=== PATIENT | female | born 1930 | race Hispanic/Latino ===

== ENCOUNTER 2018-12-29 12:20 | Emergency (ER) | payer OTHER ==
[2018-12-29 13:31] LABS: BASOPHILS % (AUTO) 0.7 % (0.0-5.0); EOSINOPHILS % (AUTO) 1.8 % (0.0-8.0); HEMATOCRIT 38.7 % (36-48); LYMPHOCYTES % (AUTO) 13.4 % (21.0-51.0); MEAN CORPUSCULAR HEMOGLOBIN 29.9 pg (27.0-33.0); MEAN CORPUSCULAR HGB CONC 33.7 g/dL (32.0-36.0); MEAN CORPUSCULAR VOLUME 88.6 fL (79-99); MONOCYTES % (AUTO) 6.5 % (3.0-13.0); NEUTROPHILS % (AUTO) 77.6 % (40.0-77.0); PLATELET COUNT (AUTO) 208 K/uL (130-400); RED BLOOD CELL COUNT(AUTO) 4.36 MIL/uL (4.00-5.50); RED CELL DISTRIBUTION WIDTH 13.1 % (11.0-15.5); WHITE BLOOD COUNT (AUTO) 9.6 K/uL (4.8-10.8)
[2018-12-29 13:40] LABS: CREATININE 1.1 mg/dL (0.5-1.5); POTASSIUM 4.3 mmol/L (3.5-5.1)
== END 2018-12-29 15:44 | disposition home or self-care (01) ==
LOC: EDH 12:20
DX: S93.491A Sprain of other ligament of right ankle, initial encounter (principal); I10 Essential (primary) hypertension; Z88.0 Allergy status to penicillin; W18.39XA Other fall on same level, initial encounter; Y93.89 Activity, other specified; Y92.89 Other specified places as the place of occurrence of the external cause; Y99.8 Other external cause status
CPT/HCPCS: 36415; 70450; 73610; 80048; 84484; 85025; 93005

== ENCOUNTER 2020-10-15 00:15 | Inpatient (IN) | payer OTHER ==
[~2020-10-15] VITALS: Ht 152.4 cm; Wt 66.5 kg
[2020-10-15] MEDS ORDERED: ACETAMINOPHEN 650 MG/20.3 ML UDCUP ONE ×2 (00:53→12:51)
[2020-10-15] MEDS ORDERED: ACETAMINOPHEN 650 MG SUPPOSITORY RC ONE (00:58)
[2020-10-15 01:06] LABS: CREATININE 1.3 mg/dL (0.5-1.5); POTASSIUM 3.7 mmol/L (3.5-5.1)
[2020-10-15 01:11] LABS: BASOPHILS % (AUTO) 0.5 % (0.0-5.0); EOSINOPHILS % (AUTO) 1.2 % (0.0-8.0); HEMATOCRIT 38.9 % (36-48); LYMPHOCYTES % (AUTO) 19.7 % (21.0-51.0); MEAN CORPUSCULAR HEMOGLOBIN 28.8 pg (27.0-33.0); MEAN CORPUSCULAR HGB CONC 33.9 g/dL (32.0-36.0); MEAN CORPUSCULAR VOLUME 84.7 fL (79-99); NEUTROPHILS % (AUTO) 72.7 % (40.0-77.0); PLATELET COUNT (AUTO) 318 K/uL (130-400); RED BLOOD CELL COUNT(AUTO) 4.59 MIL/uL (4.00-5.50); RED CELL DISTRIBUTION WIDTH 13.6 % (11.0-15.5); WHITE BLOOD COUNT (AUTO) 14.6 K/uL (4.8-10.8)
[2020-10-15] MEDS ORDERED: SODIUM CHLORIDE 0.9% 1000ML 1,000 ML IV ONE ×3 (01:13→16:40)
[2020-10-15 01:18] LABS: ALBUMIN 3.1 g/dL (3.5-5.0); BILIRUBIN,TOTAL 0.6 mg/dL (0.2-1.0); TOTAL PROTEIN, SERUM 7.9 g/dL (6.0-8.3)
[2020-10-15 01:20] LABS: APPEARANCE,URINE Clear (CLEAR); BILIRUBIN,URINE Negative (NEGATIVE); COLOR,URINE Dark Yellow (YELLOW); GLUCOSE, URINE (UA) Negative (NEGATIVE); KETONES,URINE Trace mg/dL (NEGATIVE); LEUKOCYTE ESTERASE ,URINE Trace (NEGATIVE); NITRATE,URINE Negative (NEGATIVE); OCCULT BLOOD,URINE Negative (NEGATIVE); PROTEIN,URINE Trace mg/dL (NEGATIVE)
[2020-10-15 01:30] LABS: BACTERIA,URINE None Seen /HPF (None Seen); MUCUS,URINE Rare LPF (None Seen); RBC,URINE None Seen /HPF (0-1); SQUAMOUS EPITHELIAL CELL,UR Few /HPF (0-2); WBC,URINE 0-1 /HPF (0-1)
[2020-10-15] MEDS ORDERED: IOHEXOL-350 75 ML VIAL IV ONE (01:44)
[2020-10-15] MEDS ORDERED: ZOSYN 3.375GM+NS 50ML 50 ML IV ONE ×3 (01:55→16:39)
[2020-10-15] MEDS ORDERED: SODIUM CHLORIDE 0.9% 50 ML IV ONE ×3 (01:56→16:40)
[2020-10-15] MEDS ORDERED: KETOROLAC 15MG/ML VIAL (15MG/ML) ONE (02:26)
[2020-10-15] MEDS ORDERED: ONDANSETRON HCL 4 MG/2 ML VIAL IV PRN (02:45)
[2020-10-15] MEDS: SODIUM CHLORIDE 0.9% 1000ML 1,000 ML IV SCH (02:45)
[2020-10-15] MEDS ORDERED: NITROGLYCERIN 0.4 MG SL TAB SL PRN (02:45)
[2020-10-15] MEDS ORDERED: ACETAMINOPHEN 325 MG TAB PO PRN ×2 (02:45)
[2020-10-15 05:58] LABS: CREATINE KINASE, TOTAL 33 U/L (21-232); MYOGLOBIN 118 ng/mL (10-92); TROPONIN I < 0.04 ng/mL (0.00-0.06)
[2020-10-15] MEDS ORDERED: LISINOPRIL 5 MG TABLET ONE (08:25)
[2020-10-15] MEDS ORDERED: ATENOLOL 25 MG TABLET ONE (08:25)
[2020-10-15] MEDS ORDERED: FAMOTIDINE 20MG TAB 20 MG TAB ONE (08:25)
[2020-10-15] MEDS ORDERED: HEPARIN SODIUM 5000UNIT/ML 1ML VIAL ONE ×2 (08:26→22:13)
[2020-10-15] MEDS ORDERED: LEVOTHYROXINE 25 MCG TABLET ONE (08:26)
[2020-10-15] MEDS ORDERED: LISINOPRIL 20 MG TABLET ONE (08:28)
[2020-10-15] MEDS: HEPARIN SODIUM 5000UNIT/ML 1ML VIAL SQ SCH ×2 (09:00→21:00)
[2020-10-15] MEDS: ATENOLOL 50 MG TABLET PO SCH (09:00)
[2020-10-15] MEDS: LISINOPRIL 20 MG TABLET PO SCH (09:00)
[2020-10-15] MEDS: FAMOTIDINE 20MG TAB 20 MG TAB PO SCH (09:00)
[2020-10-15] MEDS: ATORVASTATIN CALCIUM 20 MG TABLET PO SCH (21:00)
[2020-10-15 22:25] VITALS: BP 185/72
[2020-10-15] MEDS ORDERED: MORPHINE 2 MG SYG (2MG/1ML) IVP ONE (23:30)
[2020-10-15 23:45] VITALS: BP 159/72
[2020-10-16] MEDS: ZOSYN 3.375GM+NS 50ML 50 ML IV SCH ×4 (01:03→23:34)
[2020-10-16 04:00] VITALS: BP 178/89
[2020-10-16 04:59] LABS: BASOPHILS % (AUTO) 0.6 % (0.0-5.0); EOSINOPHILS % (AUTO) 1.4 % (0.0-8.0); HEMATOCRIT 34.7 % (36-48); LYMPHOCYTES % (AUTO) 25.3 % (21.0-51.0); MEAN CORPUSCULAR HEMOGLOBIN 28.7 pg (27.0-33.0); MEAN CORPUSCULAR HGB CONC 33.7 g/dL (32.0-36.0); MONOCYTES % (AUTO) 6.6 % (3.0-13.0); NEUTROPHILS % (AUTO) 65.7 % (40.0-77.0); PLATELET COUNT (AUTO) 323 K/uL (130-400); RED BLOOD CELL COUNT(AUTO) 4.08 MIL/uL (4.00-5.50); RED CELL DISTRIBUTION WIDTH 13.5 % (11.0-15.5); WHITE BLOOD COUNT (AUTO) 10.3 K/uL (4.8-10.8)
[2020-10-16 05:15] LABS: ALBUMIN 2.7 g/dL (3.5-5.0); BILIRUBIN,TOTAL 0.7 mg/dL (0.2-1.0); CREATININE 1.1 mg/dL (0.5-1.5); MAGNESIUM 1.7 mg/dL (1.80-2.40); POTASSIUM 3.8 mmol/L (3.5-5.1); TOTAL PROTEIN, SERUM 6.8 g/dL (6.0-8.3)
[2020-10-16] MEDS: LEVOTHYROXINE 50 MCG TABLET PO SCH (06:40)
[2020-10-16 07:00] VITALS: BP 150/87
[2020-10-16] MEDS: SODIUM CHLORIDE 0.9% 1000ML 1,000 ML IV SCH ×2 (07:21→21:39)
[2020-10-16] MEDS: FAMOTIDINE 20MG TAB 20 MG TAB PO SCH (09:00)
[2020-10-16] MEDS: ATENOLOL 50 MG TABLET PO SCH (09:00)
[2020-10-16] MEDS: LISINOPRIL 20 MG TABLET PO SCH (09:00)
[2020-10-16 11:00] VITALS: BP 164/63
[2020-10-16] MEDS: HEPARIN SODIUM 5000UNIT/ML 1ML VIAL SQ SCH ×3 (11:54→19:49)
[2020-10-16 16:00] VITALS: BP 123/58
[2020-10-16] MEDS: ATORVASTATIN CALCIUM 20 MG TABLET PO SCH (19:48)
[2020-10-16 20:00] VITALS: BP 147/64
[2020-10-16] MEDS ORDERED: HYDRALAZINE HCL 20 MG/ML VIAL IV STA (23:28)
[2020-10-16] MEDS ORDERED: HYDRALAZINE HCL 20 MG/ML VIAL ONE (23:32)
[2020-10-16 23:45] VITALS: BP 192/73
[2020-10-17 00:22] VITALS: BP 158/80
[2020-10-17 04:00] VITALS: BP 165/58
[2020-10-17 05:32] LABS: HEMATOCRIT 36.3 % (36-48); MEAN CORPUSCULAR HEMOGLOBIN 29.1 pg (27.0-33.0); MEAN CORPUSCULAR HGB CONC 34.2 g/dL (32.0-36.0); MEAN CORPUSCULAR VOLUME 85.2 fL (79-99); PLATELET COUNT (AUTO) 341 K/uL (130-400); RED BLOOD CELL COUNT(AUTO) 4.26 MIL/uL (4.00-5.50); RED CELL DISTRIBUTION WIDTH 13.6 % (11.0-15.5); WHITE BLOOD COUNT (AUTO) 11.3 K/uL (4.8-10.8)
[2020-10-17 05:38] LABS: CREATININE 0.8 mg/dL (0.5-1.5); POTASSIUM 3.3 mmol/L (3.5-5.1)
[2020-10-17] MEDS: LEVOTHYROXINE 50 MCG TABLET PO SCH (05:45)
[2020-10-17 05:54] LABS: BASOPHILS % (MANUAL) 1 % (0-2); LYMPHOCYTES % (MANUAL) 19 % (22-44); MONOCYTES % (MANUAL) 4 % (2-9); SEGMENTED NEUTROPHILS % 76 % (40-70)
[2020-10-17 05:55] LABS: MAN.DIFF COMMENT-IMPRESSION MANUAL DIFFERENTIAL
[2020-10-17 08:00] VITALS: BP 177/66
[2020-10-17] MEDS: ZOSYN 3.375GM+NS 50ML 50 ML IV SCH ×3 (08:21→23:57)
[2020-10-17] MEDS: FAMOTIDINE 20MG TAB 20 MG TAB PO SCH (08:22)
[2020-10-17] MEDS: ATENOLOL 50 MG TABLET PO SCH (08:22)
[2020-10-17] MEDS: LISINOPRIL 20 MG TABLET PO SCH (08:22)
[2020-10-17] MEDS: HEPARIN SODIUM 5000UNIT/ML 1ML VIAL SQ SCH ×3 (08:26→19:36)
[2020-10-17] MEDS: SODIUM CHLORIDE 0.9% 1000ML 1,000 ML IV SCH (08:47)
[2020-10-17 12:00] VITALS: BP 128/53
[2020-10-17] MEDS ORDERED: SODIUM CHLORIDE 0.9% 250 ML IV ONE (15:38)
[2020-10-17] MEDS: DOXYCYCLINE 100MG+NS 250ML 250 ML IV SCH (15:45)
[2020-10-17 16:00] VITALS: BP 130/62
[2020-10-17] MEDS: ATORVASTATIN CALCIUM 20 MG TABLET PO SCH (19:35)
[2020-10-17 20:00] VITALS: BP 154/65
[2020-10-18] VITALS (26 sets, daily range): BP systolic 119–198; BP diastolic 45–84
[2020-10-18] MEDS: DOXYCYCLINE 100MG+NS 250ML 250 ML IV SCH ×2 (02:11→14:01)
[2020-10-18 04:15] LABS: BASOPHILS % (AUTO) 0.9 % (0.0-5.0); HEMATOCRIT 33.2 % (36-48); LYMPHOCYTES % (AUTO) 23.4 % (21.0-51.0); MEAN CORPUSCULAR HEMOGLOBIN 29.5 pg (27.0-33.0); MEAN CORPUSCULAR HGB CONC 34.3 g/dL (32.0-36.0); MONOCYTES % (AUTO) 7.4 % (3.0-13.0); PLATELET COUNT (AUTO) 329 K/uL (130-400); RED BLOOD CELL COUNT(AUTO) 3.86 MIL/uL (4.00-5.50); RED CELL DISTRIBUTION WIDTH 14.1 % (11.0-15.5)
[2020-10-18 04:48] LABS: ALBUMIN 2.5 g/dL (3.5-5.0); BILIRUBIN,TOTAL 0.8 mg/dL (0.2-1.0); CREATININE 0.8 mg/dL (0.5-1.5); POTASSIUM 3.3 mmol/L (3.5-5.1); TOTAL PROTEIN, SERUM 6.5 g/dL (6.0-8.3)
[2020-10-18] MEDS: LEVOTHYROXINE 50 MCG TABLET PO SCH (05:06)
[2020-10-18] MEDS: SODIUM CHLORIDE 0.9% 1000ML 1,000 ML IV SCH ×2 (06:15→14:01)
[2020-10-18] MEDS ORDERED: DEXTROSE 50%-WATER 50 ML DISP.SYRIN IV ONE (07:55)
[2020-10-18] MEDS ORDERED: DEXTROSE 50%-WATER 50 ML DISP.SYRIN IV PRN (08:00)
[2020-10-18] MEDS ORDERED: GLUCAGON 1MG KIT 1 MG ML IM PRN (08:00)
[2020-10-18] MEDS ORDERED: IOHEXOL-350 50ML VIAL IV ONE (08:43)
[2020-10-18] MEDS: ATENOLOL 50 MG TABLET PO SCH (09:00)
[2020-10-18] MEDS ORDERED: INDOMETHACIN 50 MG SUPP.RECT RC SCH (09:00)
[2020-10-18] MEDS: HEPARIN SODIUM 5000UNIT/ML 1ML VIAL SQ SCH (09:00)
[2020-10-18] MEDS: ZOSYN 3.375GM+NS 50ML 50 ML IV SCH ×2 (09:00→17:16)
[2020-10-18] MEDS: LISINOPRIL 20 MG TABLET PO SCH (09:00)
[2020-10-18] MEDS: FAMOTIDINE 20MG TAB 20 MG TAB PO SCH (09:00)
[2020-10-18] MEDS ORDERED: PROPOFOL 10 MG/ML 20ML VIAL IV ONE (09:36)
[2020-10-18] MEDS ORDERED: SUCCINYLCHOLINE 200MG/10ML SYR ONE (09:36)
[2020-10-18] MEDS ORDERED: EPHEDRINE SULFATE 50 MG/ML AMPULE ONE (09:55)
[2020-10-18] MEDS ORDERED: HYDRALAZINE HCL 20 MG/ML VIAL ONE (10:38)
[2020-10-18] MEDS ORDERED: PHARMACY COMMUNICATION MISC SCH (12:30)
[2020-10-18] MEDS ORDERED: SODIUM CHLORIDE 0.9% 250 ML IV ONE (13:31)
[2020-10-18] MEDS: ATORVASTATIN CALCIUM 20 MG TABLET PO SCH (20:40)
[2020-10-19] VITALS (23 sets, daily range): BP systolic 119–188; BP diastolic 46–80
[2020-10-19] MEDS ORDERED: SODIUM CHLORIDE 0.9% 50 ML IV ONE (02:04)
[2020-10-19] MEDS: ZOSYN 3.375GM+NS 50ML 50 ML IV SCH ×3 (02:14→17:56)
[2020-10-19] MEDS ORDERED: SODIUM CHLORIDE 0.9% 250 ML IV ONE (04:12)
[2020-10-19] MEDS: DOXYCYCLINE 100MG+NS 250ML 250 ML IV SCH ×2 (04:17→17:56)
[2020-10-19 04:55] LABS: ALBUMIN 2.5 g/dL (3.5-5.0); BILIRUBIN,TOTAL 0.7 mg/dL (0.2-1.0); CREATININE 0.8 mg/dL (0.5-1.5); CRP QUANTITATIVE 12.4 mg/L (0.00-9.0); POTASSIUM 3.4 mmol/L (3.5-5.1); TOTAL PROTEIN, SERUM 6.5 g/dL (6.0-8.3)
[2020-10-19] MEDS: LEVOTHYROXINE 50 MCG TABLET PO SCH (06:15)
[2020-10-19] MEDS: LISINOPRIL 20 MG TABLET PO SCH (11:20)
[2020-10-19] MEDS: FAMOTIDINE 20MG TAB 20 MG TAB PO SCH (11:21)
[2020-10-19] MEDS: ATENOLOL 50 MG TABLET PO SCH (11:22)
[2020-10-19] MEDS ORDERED: LACTATED RINGERS 1000ML 1,000 ML IV ONE (14:24)
[2020-10-19] MEDS ORDERED: BUPIVACAINE/PF 0.5% 30ML VIAL ONE (14:36)
[2020-10-19] MEDS ORDERED: PROPOFOL 10 MG/ML 20ML VIAL IV ONE (14:38)
[2020-10-19] MEDS ORDERED: SUCCINYLCHOLINE CHLORIDE 20 MG/ML 10 ML VIAL ONE (14:38)
[2020-10-19] MEDS ORDERED: LIDOCAINE PF 100MG/5ML (2%) SYRINGE 5ML ONE (14:38)
[2020-10-19] MEDS ORDERED: ROCURONIUM 10MG/1ML SYR 10 MG/ML ML ONE (14:39)
[2020-10-19] MEDS ORDERED: FENTANYL CITRATE PF 50 MCG/1 ML 2ML VIAL ONE (14:39)
[2020-10-19] MEDS ORDERED: GLYCOPYRROLATE 1 MG/5 ML SYRINGE ONE (15:09)
[2020-10-19] MEDS ORDERED: EPHEDRINE SULFATE 50 MG/ML AMPULE ONE (15:14)
[2020-10-19] MEDS ORDERED: NEOSTIGMINE 5MG/5ML SYR IV ONE (15:23)
[2020-10-19] MEDS ORDERED: LABETALOL HCL 5 MG/ML 20ML VIAL IV ONE (16:02)
[2020-10-19] MEDS ORDERED: HYDRALAZINE HCL 20 MG/ML VIAL ONE (16:03)
[2020-10-19] MEDS ORDERED: MEPERIDINE-PF 25 MG/ML SYG ONE (16:08)
[2020-10-19 17:53] LABS: BASOPHILS % (AUTO) 0.5 % (0.0-5.0); EOSINOPHILS % (AUTO) 1.1 % (0.0-8.0); HEMATOCRIT 33.7 % (36-48); LYMPHOCYTES % (AUTO) 10.7 % (21.0-51.0); MEAN CORPUSCULAR HEMOGLOBIN 29.8 pg (27.0-33.0); MEAN CORPUSCULAR HGB CONC 34.1 g/dL (32.0-36.0); MEAN CORPUSCULAR VOLUME 87.3 fL (79-99); MONOCYTES % (AUTO) 5.1 % (3.0-13.0); NEUTROPHILS % (AUTO) 82.3 % (40.0-77.0); PLATELET COUNT (AUTO) 312 K/uL (130-400); RED BLOOD CELL COUNT(AUTO) 3.86 MIL/uL (4.00-5.50); RED CELL DISTRIBUTION WIDTH 14.7 % (11.0-15.5); WHITE BLOOD COUNT (AUTO) 11.7 K/uL (4.8-10.8)
[2020-10-19] MEDS ORDERED: ACETAMINOPHEN-CODEINE 300/30MG TAB PO PRN (19:45)
[2020-10-19] MEDS: ATORVASTATIN CALCIUM 20 MG TABLET PO SCH (21:50)
[2020-10-19] MEDS: MORPHINE 2 MG SYG (2MG/1ML) IVP PRN (21:57)
[2020-10-20] VITALS: BP 134/60
[2020-10-20] MEDS ORDERED: SODIUM CHLORIDE 0.9% 50 ML IV ONE (01:38)
[2020-10-20] MEDS: ZOSYN 3.375GM+NS 50ML 50 ML IV SCH ×2 (01:40→12:01)
[2020-10-20] MEDS ORDERED: SODIUM CHLORIDE 0.9% 250 ML IV ONE ×2 (03:32→20:22)
[2020-10-20] MEDS: DOXYCYCLINE 100MG+NS 250ML 250 ML IV SCH ×2 (03:49→20:33)
[2020-10-20 04:00] VITALS: BP 169/76
[2020-10-20 04:08] LABS: BASOPHILS % (AUTO) 0.7 % (0.0-5.0); EOSINOPHILS % (AUTO) 1.4 % (0.0-8.0); HEMATOCRIT 33.5 % (36-48); LYMPHOCYTES % (AUTO) 15.4 % (21.0-51.0); MEAN CORPUSCULAR HEMOGLOBIN 29.2 pg (27.0-33.0); MEAN CORPUSCULAR HGB CONC 33.7 g/dL (32.0-36.0); MEAN CORPUSCULAR VOLUME 86.6 fL (79-99); MONOCYTES % (AUTO) 6.3 % (3.0-13.0); NEUTROPHILS % (AUTO) 75.9 % (40.0-77.0); PLATELET COUNT (AUTO) 321 K/uL (130-400); RED BLOOD CELL COUNT(AUTO) 3.87 MIL/uL (4.00-5.50); RED CELL DISTRIBUTION WIDTH 14.5 % (11.0-15.5); WHITE BLOOD COUNT (AUTO) 11.7 K/uL (4.8-10.8)
[2020-10-20 04:22] LABS: ALBUMIN 2.4 g/dL (3.5-5.0); BILIRUBIN,TOTAL 0.8 mg/dL (0.2-1.0); CREATININE 0.7 mg/dL (0.5-1.5); CRP QUANTITATIVE 24.1 mg/L (0.00-9.0); POTASSIUM 3.3 mmol/L (3.5-5.1); TOTAL PROTEIN, SERUM 6.2 g/dL (6.0-8.3)
[2020-10-20] MEDS: LEVOTHYROXINE 50 MCG TABLET PO SCH (06:41)
[2020-10-20 08:00] VITALS: BP 167/69
[2020-10-20] MEDS ORDERED: LISINOPRIL 20 MG TABLET PO SCH (10:45)
[2020-10-20 11:58] VITALS: BP 162/72
[2020-10-20] MEDS: FAMOTIDINE 20MG TAB 20 MG TAB PO SCH (12:02)
[2020-10-20] MEDS: ATENOLOL 50 MG TABLET PO SCH (12:03)
[2020-10-20 16:00] VITALS: BP 163/62
[2020-10-20 19:00] VITALS: BP 182/74
[2020-10-20] MEDS: ATORVASTATIN CALCIUM 20 MG TABLET PO SCH (20:32)
[2020-10-20] MEDS: SODIUM CHLORIDE 0.9% 1000ML 1,000 ML IV SCH (20:49)
[2020-10-21] VITALS (7 sets, daily range): BP systolic 114–197; BP diastolic 71–90
[2020-10-21] MEDS: ZOSYN 3.375GM+NS 50ML 50 ML IV SCH ×3 (00:24→16:20)
[2020-10-21 04:16] LABS: BASOPHILS % (AUTO) 0.9 % (0.0-5.0); EOSINOPHILS % (AUTO) 2.6 % (0.0-8.0); HEMATOCRIT 32.9 % (36-48); LYMPHOCYTES % (AUTO) 24.2 % (21.0-51.0); MEAN CORPUSCULAR HEMOGLOBIN 29.2 pg (27.0-33.0); MEAN CORPUSCULAR VOLUME 85.7 fL (79-99); MONOCYTES % (AUTO) 7.5 % (3.0-13.0); NEUTROPHILS % (AUTO) 64.4 % (40.0-77.0); PLATELET COUNT (AUTO) 322 K/uL (130-400); RED BLOOD CELL COUNT(AUTO) 3.84 MIL/uL (4.00-5.50); RED CELL DISTRIBUTION WIDTH 14.7 % (11.0-15.5); WHITE BLOOD COUNT (AUTO) 9.6 K/uL (4.8-10.8)
[2020-10-21 04:33] LABS: ALBUMIN 2.4 g/dL (3.5-5.0); BILIRUBIN,TOTAL 0.9 mg/dL (0.2-1.0); CREATININE 0.7 mg/dL (0.5-1.5); TOTAL PROTEIN, SERUM 6.3 g/dL (6.0-8.3)
[2020-10-21 04:40] LABS: POTASSIUM 2.8 mmol/L (3.5-5.1)
[2020-10-21] MEDS ORDERED: KCL 20 MEQ ERTAB PO PRN (05:15)
[2020-10-21] MEDS: POTASSIUM CHLORIDE 10% ELIXIR 20 MEQ/15 ML UDCUP PO PRN ×3 (05:43→13:52)
[2020-10-21] MEDS: LEVOTHYROXINE 50 MCG TABLET PO SCH (05:43)
[2020-10-21] MEDS: POTASSIUM CHLORIDE 10MEQ/100ML 100 ML IV PRN (05:44)
[2020-10-21] MEDS: LABETALOL 20 MG/4 ML DISP.SYRIN IV PRN ×2 (05:48→17:46)
[2020-10-21] MEDS: DOXYCYCLINE 100MG+NS 250ML 250 ML IV SCH ×2 (08:21→19:06)
[2020-10-21] MEDS: ATENOLOL 50 MG TABLET PO SCH (09:27)
[2020-10-21] MEDS: LISINOPRIL 20 MG TABLET PO SCH (09:27)
[2020-10-21] MEDS: FAMOTIDINE 20MG TAB 20 MG TAB PO SCH (09:27)
[2020-10-21] MEDS: SODIUM CHLORIDE 0.9% 1000ML 1,000 ML IV SCH (14:46)
[2020-10-21] MEDS ORDERED: SIMETHICONE 80 MG TAB.CHEW PO SCH (16:15)
[2020-10-21] MEDS ORDERED: KCL 20 MEQ ERTAB PO SCH (16:15)
[2020-10-21 18:55] LABS: CREATININE 0.6 mg/dL (0.5-1.5); POTASSIUM 3.2 mmol/L (3.5-5.1)
[2020-10-21] MEDS ORDERED: DOXYCYCLINE 100MG+NS 250ML 250 ML IV SCH (20:00)
[2020-10-21] MEDS: ATORVASTATIN CALCIUM 20 MG TABLET PO SCH (20:50)
[2020-10-21] MEDS: MORPHINE 2 MG SYG (2MG/1ML) IVP PRN (20:59)
[2020-10-22] VITALS (8 sets, daily range): BP systolic 161–196; BP diastolic 58–84
[2020-10-22] MEDS: LABETALOL 20 MG/4 ML DISP.SYRIN IV PRN (00:24)
[2020-10-22] MEDS: ZOSYN 3.375GM+NS 50ML 50 ML IV SCH ×3 (00:24→16:46)
[2020-10-22] MEDS: LIDOCAINE HCL-MPF 1% 2ML VIAL IJ PRN ×2 (04:13→11:46)
[2020-10-22] MEDS: POTASSIUM CHLORIDE 10MEQ/100ML 100 ML IV PRN ×2 (04:13→11:46)
[2020-10-22 05:35] LABS: BASOPHILS % (AUTO) 1.3 % (0.0-5.0); EOSINOPHILS % (AUTO) 2.3 % (0.0-8.0); HEMATOCRIT 32.2 % (36-48); LYMPHOCYTES % (AUTO) 22.5 % (21.0-51.0); MEAN CORPUSCULAR HEMOGLOBIN 28.7 pg (27.0-33.0); MEAN CORPUSCULAR HGB CONC 33.5 g/dL (32.0-36.0); MEAN CORPUSCULAR VOLUME 85.6 fL (79-99); MONOCYTES % (AUTO) 6.9 % (3.0-13.0); NEUTROPHILS % (AUTO) 66.6 % (40.0-77.0); PLATELET COUNT (AUTO) 320 K/uL (130-400); RED BLOOD CELL COUNT(AUTO) 3.76 MIL/uL (4.00-5.50); RED CELL DISTRIBUTION WIDTH 14.9 % (11.0-15.5); WHITE BLOOD COUNT (AUTO) 8.3 K/uL (4.8-10.8)
[2020-10-22 05:52] LABS: ALBUMIN 2.4 g/dL (3.5-5.0); BILIRUBIN,TOTAL 0.8 mg/dL (0.2-1.0); CREATININE 0.7 mg/dL (0.5-1.5); POTASSIUM 3.1 mmol/L (3.5-5.1); TOTAL PROTEIN, SERUM 6.1 g/dL (6.0-8.3)
[2020-10-22] MEDS: LEVOTHYROXINE 50 MCG TABLET PO SCH (06:04)
[2020-10-22] MEDS: FAMOTIDINE 20MG TAB 20 MG TAB PO SCH (08:44)
[2020-10-22] MEDS: LISINOPRIL 20 MG TABLET PO SCH (08:45)
[2020-10-22] MEDS: ATENOLOL 50 MG TABLET PO SCH (08:45)
[2020-10-22] MEDS: DOXYCYCLINE 100MG+NS 250ML 250 ML IV SCH ×2 (08:46→20:26)
[2020-10-22] MEDS: SODIUM CHLORIDE 0.9% 1000ML 1,000 ML IV SCH (10:46)
[2020-10-22] MEDS: LABETALOL HCL 5 MG/ML 20ML VIAL IV PRN ×3 (12:31→23:47)
[2020-10-22] MEDS: ATORVASTATIN CALCIUM 20 MG TABLET PO SCH (20:26)
[2020-10-23] MEDS: ZOSYN 3.375GM+NS 50ML 50 ML IV SCH ×2 (01:00→10:05)
[2020-10-23 01:09] VITALS: BP 161/73
[2020-10-23 04:00] VITALS: BP 157/64
[2020-10-23 05:16] LABS: EOSINOPHILS % (AUTO) 1.8 % (0.0-8.0); HEMATOCRIT 32.2 % (36-48); LYMPHOCYTES % (AUTO) 16.7 % (21.0-51.0); MEAN CORPUSCULAR HGB CONC 33.5 g/dL (32.0-36.0); MEAN CORPUSCULAR VOLUME 86.3 fL (79-99); MONOCYTES % (AUTO) 5.9 % (3.0-13.0); NEUTROPHILS % (AUTO) 74.1 % (40.0-77.0); PLATELET COUNT (AUTO) 307 K/uL (130-400); RED BLOOD CELL COUNT(AUTO) 3.73 MIL/uL (4.00-5.50); RED CELL DISTRIBUTION WIDTH 15.2 % (11.0-15.5); WHITE BLOOD COUNT (AUTO) 10.6 K/uL (4.8-10.8)
[2020-10-23 05:46] LABS: ALBUMIN 2.4 g/dL (3.5-5.0); BILIRUBIN,TOTAL 0.8 mg/dL (0.2-1.0); CREATININE 0.7 mg/dL (0.5-1.5); TOTAL PROTEIN, SERUM 6.1 g/dL (6.0-8.3)
[2020-10-23] MEDS: LEVOTHYROXINE 50 MCG TABLET PO SCH (06:04)
[2020-10-23] MEDS: SODIUM CHLORIDE 0.9% 1000ML 1,000 ML IV SCH (06:05)
[2020-10-23] MEDS: LIDOCAINE HCL-MPF 1% 2ML VIAL IJ PRN ×2 (06:18→11:54)
[2020-10-23] MEDS: POTASSIUM CHLORIDE 10MEQ/100ML 100 ML IV PRN ×2 (06:18→11:54)
[2020-10-23 08:00] VITALS: BP 183/90
[2020-10-23] MEDS: FAMOTIDINE 20MG TAB 20 MG TAB PO SCH (10:04)
[2020-10-23] MEDS: ATENOLOL 50 MG TABLET PO SCH (10:04)
[2020-10-23] MEDS: DOXYCYCLINE 100MG+NS 250ML 250 ML IV SCH (10:05)
[2020-10-23] MEDS: LISINOPRIL 20 MG TABLET PO SCH (10:05)
[2020-10-23 12:00] VITALS: BP 179/78
[2020-10-23 13:00] VITALS: BP 156/98
[2020-10-23] MEDS ORDERED: ACET-3194 PO (13:22)
[2020-10-23] MEDS ORDERED: ATOR20TA65 PO (13:22)
[2020-10-23] MEDS ORDERED: LISI20TA24 PO (13:22)
[2020-10-23] MEDS ORDERED: ATEN50TA PO (13:22)
[2020-10-23] MEDS ORDERED: AMOX-429 PO (13:22)
[2020-10-23] MEDS ORDERED: KCL 20 MEQ ERTAB PO SCH (16:35)
== END 2020-10-23 16:23 | disposition home or self-care (01) | DRG 853 ==
LOC: EDH 00:15 → EDBD 00:16 → EDHIP 00:16 → 4BH 20:49
PROVIDERS: ADMIT Internal Medicine; ATTEND Internal Medicine
PROC: 0F798ZZ Dilation of Common Bile Duct, Via Natural or Artificial Opening Endoscopic (ICD-10-PCS; 2020-10-18)
PROC: 0FB98ZZ Excision of Common Bile Duct, Via Natural or Artificial Opening Endoscopic (ICD-10-PCS; 2020-10-18)
PROC: 0FT44ZZ Resection of Gallbladder, Percutaneous Endoscopic Approach (ICD-10-PCS; principal; 2020-10-19 14:54)
DX: A41.9 Sepsis, unspecified organism (principal); J18.9 Pneumonia, unspecified organism; G93.41 Metabolic encephalopathy; N39.0 Urinary tract infection, site not specified; K80.62 Calculus of gallbladder and bile duct with acute cholecystitis without obstruction; E86.0 Dehydration; E66.9 Obesity, unspecified; K57.90 Diverticulosis of intestine, part unspecified, without perforation or abscess without bleeding; I12.9 Hypertensive chronic kidney disease with stage 1 through stage 4 chronic kidney disease, or unspecified chronic kidney disease; N18.30 Chronic kidney disease, stage 3 unspecified; E87.6 Hypokalemia; K83.8 Other specified diseases of biliary tract; E78.5 Hyperlipidemia, unspecified; Z68.31 Body mass index [BMI] 31.0-31.9, adult; Z83.79 Family history of other diseases of the digestive system
CPT/HCPCS: 36415; 43262; 43264; 70450; 71045; 72125; 74018; 74177; 74181; 74330; 76705; 80048; 80053; 81001; 82140; 82550; 82948; 83605; 83735; 83874; 83880; 84132; 84145; 84484; 85025; 86140; 87040; 87088; 87426; 87635; 87804; 92610; 93005; 93306; 93356; 93970; 97039; A4606; C1769; C1773; C9803; G0378; J0330; J0360; J1644; J1885; J2001; J2175; J2405; J2543; J2704; J2710; J3010; J3490; J7030; J7050; J7070; J7120; Q9967

== ENCOUNTER 2021-01-09 17:44 | Inpatient (IN) | payer MEDICAID, OTHER ==
[~2021-01-09] VITALS: Ht 152.4 cm; Wt 59.0 kg
[~2021-01-09 17:44] MED LIST: ACET-3194 PO; AMOX-429 PO; ATEN50TA PO; ATOR20TA65 PO; LISI20TA24 PO
[2021-01-09 18:19] LABS: BASOPHILS % (AUTO) 0.1 % (0.0-5.0); EOSINOPHILS % (AUTO) 0.2 % (0.0-8.0); HEMATOCRIT 38.3 % (36-48); LYMPHOCYTES % (AUTO) 6.3 % (21.0-51.0); MEAN CORPUSCULAR HEMOGLOBIN 29.2 pg (27.0-33.0); MEAN CORPUSCULAR HGB CONC 33.7 g/dL (32.0-36.0); MEAN CORPUSCULAR VOLUME 86.7 fL (79-99); MONOCYTES % (AUTO) 6.9 % (3.0-13.0); NEUTROPHILS % (AUTO) 85.8 % (40.0-77.0); PLATELET COUNT (AUTO) 505 K/uL (130-400); RED BLOOD CELL COUNT(AUTO) 4.42 MIL/uL (4.00-5.50); RED CELL DISTRIBUTION WIDTH 13.2 % (11.0-15.5); WHITE BLOOD COUNT (AUTO) 20.5 K/uL (4.8-10.8)
[2021-01-09 18:31] LABS: POTASSIUM 3.3 mmol/L (3.5-5.1)
[2021-01-09 18:32] LABS: INR 1.15 (0.85-1.15); PROTHROMBIN TIME 12.4 SEC (9.6-11.6)
[2021-01-09 18:33] LABS: PARTIAL THROMBOPLASTIN TIME 42.5 SEC (26.3-35.5)
[2021-01-09 18:36] LABS: ALBUMIN 2.4 g/dL (3.5-5.0); BILIRUBIN,TOTAL 1.2 mg/dL (0.2-1.0); MAGNESIUM 1.7 mg/dL (1.80-2.40)
[2021-01-09 18:58] VITALS: BP 147/69
[2021-01-09] MEDS ORDERED: CEFTRIAXONE 1G VIAL IVP ONE (19:00)
[2021-01-09 19:06] LABS: B-TYPE NATRIURETIC PEPTIDE 132 pg/mL (0-100)
[2021-01-09] MEDS: 0.9%NACL 1000ML 1,000 ML IV SCH (19:36)
[2021-01-09 20:00] VITALS: BP 200/93
[2021-01-09 20:30] VITALS: BP 193/97
[2021-01-09 21:00] VITALS: BP 200/93
[2021-01-09] MEDS ORDERED: IOHEXOL-350 75 ML VIAL IV ONE ×2 (21:00→21:02)
[2021-01-09] MEDS ORDERED: LABETALOL 20MG SYG IV ONE (21:04)
[2021-01-09 21:30] VITALS: BP 157/89
[2021-01-09] MEDS ORDERED: DEXTROSE 50%-WATER 50 ML DISP.SYRIN IV PRN (22:30)
[2021-01-09] MEDS ORDERED: ACETAMINOPHEN 325 MG TAB PO PRN ×2 (22:30)
[2021-01-09] MEDS ORDERED: NITROGLYCERIN 0.4 MG SL TAB SL PRN (22:30)
[2021-01-09] MEDS: 0.9% NACL 250ML IVPB SCH (22:30)
[2021-01-09] MEDS ORDERED: GLUCAGON 1MG KIT 1 MG ML IM PRN (22:30)
[2021-01-09] MEDS ORDERED: KCL 20 MEQ ERTAB PO PRN (22:30)
[2021-01-09] MEDS ORDERED: ALBUTEROL INHALER 90MCG/INH IH PRN (22:30)
[2021-01-09] MEDS ORDERED: MAGNESIUM 2GM PREMIX 50ML 50 ML IV PRN (22:30)
[2021-01-09] MEDS ORDERED: MAGNESIUM 2GM PREMIX 50ML 50 ML IV SCH (22:30)
[2021-01-09] MEDS ORDERED: LIDOCAINE HCL-MPF 1% 2ML VIAL IJ PRN (22:30)
[2021-01-09] MEDS ORDERED: ONDANSETRON 4MG INJ IV PRN (22:30)
[2021-01-09] MEDS ORDERED: POTASSIUM CHLORIDE 10% ELIXIR 20 MEQ/15 ML UDCUP PO PRN (22:30)
[2021-01-09] MEDS ORDERED: POTASSIUM CHLORIDE 20MEQ/100ML 100 ML IV PRN (22:30)
[2021-01-09 23:02] LABS: HEMOGLOBIN A1C 5.9 % (4.0-6.0)
[2021-01-09 23:13] LABS: CREATINE KINASE, TOTAL 26 U/L (21-232); MYOGLOBIN 30 ng/mL (10-92); TROPONIN I < 0.04 ng/mL (0.00-0.06)
[2021-01-09 23:34] LABS: CRP QUANTITATIVE 172.2 mg/L (0.00-9.0)
[2021-01-10] VITALS (12 sets, daily range): BP systolic 115–206; BP diastolic 56–110
[2021-01-10] MEDS ORDERED: NAPR-1141 PO (00:05)
[2021-01-10] MEDS ORDERED: AMLO-257 PO (00:05)
[2021-01-10] MEDS ORDERED: AZITHROMYCIN 500MG+NS 250ML 250 ML IV ONE ×2 (00:15→22:39)
[2021-01-10] MEDS: AZITHROMYCIN 500MG VIAL IVPB SCH ×2 (00:25→22:42)
[2021-01-10] MEDS ORDERED: LABETALOL 20MG SYG IV ONE (00:30)
[2021-01-10] MEDS ORDERED: HYDROCODONE/ACETAMINOPHEN 5/325 MG TAB PO PRN (00:30)
[2021-01-10] MEDS: 0.9%NACL 1000ML 1,000 ML IV SCH ×4 (00:35→22:28)
[2021-01-10] MEDS ORDERED: HYDROCODONE/ACETAMINOPHEN 5/325 MG TAB ONE (01:10)
[2021-01-10 06:59] LABS: BASOPHILS % (AUTO) 0.2 % (0.0-5.0); EOSINOPHILS % (AUTO) 0.1 % (0.0-8.0); HEMATOCRIT 35.5 % (36-48); LYMPHOCYTES % (AUTO) 5.3 % (21.0-51.0); MEAN CORPUSCULAR HEMOGLOBIN 29.4 pg (27.0-33.0); MEAN CORPUSCULAR HGB CONC 33.5 g/dL (32.0-36.0); MEAN CORPUSCULAR VOLUME 87.7 fL (79-99); MONOCYTES % (AUTO) 6.1 % (3.0-13.0); NEUTROPHILS % (AUTO) 87.8 % (40.0-77.0); PLATELET COUNT (AUTO) 483 K/uL (130-400); RED BLOOD CELL COUNT(AUTO) 4.05 MIL/uL (4.00-5.50); RED CELL DISTRIBUTION WIDTH 13.2 % (11.0-15.5); WHITE BLOOD COUNT (AUTO) 18.8 K/uL (4.8-10.8)
[2021-01-10 07:14] LABS: ALBUMIN 2.1 g/dL (3.5-5.0); BILIRUBIN,TOTAL 0.6 mg/dL (0.2-1.0); CREATININE 0.7 mg/dL (0.5-1.5); MAGNESIUM 1.6 mg/dL (1.80-2.40); POTASSIUM 3.3 mmol/L (3.5-5.1); TOTAL PROTEIN, SERUM 7.2 g/dL (6.0-8.3)
[2021-01-10] MEDS: INSULIN HUMULIN R 100 UNIT/ML 3ML SQ SCH ×4 (07:30→21:00)
[2021-01-10 08:14] LABS: CRP QUANTITATIVE 192.6 mg/L (0.00-9.0)
[2021-01-10] MEDS ORDERED: AMLODIPINE 5 MG TAB PO SCH ×2 (09:00→17:30)
[2021-01-10] MEDS: FAMOTIDINE 20MG TAB PO SCH ×2 (09:00→22:42)
[2021-01-10] MEDS ORDERED: ENOXAPARIN SODIUM 40 MG/0.4 ML SYRINGE SQ SCH ×2 (09:00)
[2021-01-10] MEDS ORDERED: ATENOLOL 50 MG TABLET PO SCH (09:00)
[2021-01-10] MEDS ORDERED: CEFTRIAXONE 1G VIAL IVP SCH (09:00)
[2021-01-10] MEDS ORDERED: HYDRALAZINE 20MG/ML VIAL IM PRN (10:30)
[2021-01-10] MEDS ORDERED: LIDOCAINE 5% TOPICAL PATCH TP SCH (17:30)
[2021-01-10] MEDS ORDERED: ATENOLOL 25 MG TABLET ONE (20:03)
[2021-01-10] MEDS ORDERED: ACETAMINOPHEN WITH CODEINE 1 TAB TAB PO PRN (21:00)
[2021-01-10] MEDS ORDERED: HYDRALAZINE 20MG/ML VIAL IV PRN (22:30)
[2021-01-10] MEDS: 0.9% NACL 250ML IVPB SCH (22:42)
== END 2021-01-11 01:20 | disposition left against medical advice (07) | DRG 871 ==
LOC: EDH 17:44 → EDHIP 17:45 → 4AH 01-10 21:39
PROVIDERS: ADMIT Internal Medicine; ATTEND Internal Medicine
DX: A41.9 Sepsis, unspecified organism (principal); J18.9 Pneumonia, unspecified organism; E87.1 Hypo-osmolality and hyponatremia; N17.9 Acute kidney failure, unspecified; N18.30 Chronic kidney disease, stage 3 unspecified; E11.22 Type 2 diabetes mellitus with diabetic chronic kidney disease; E78.5 Hyperlipidemia, unspecified; E83.42 Hypomagnesemia; E87.6 Hypokalemia; Z20.822 Contact with and (suspected) exposure to COVID-19; S20.212A Contusion of left front wall of thorax, initial encounter; I12.9 Hypertensive chronic kidney disease with stage 1 through stage 4 chronic kidney disease, or unspecified chronic kidney disease; I16.0 Hypertensive urgency; Y93.89 Activity, other specified; Y99.8 Other external cause status; W18.30XA Fall on same level, unspecified, initial encounter; Y92.009 Unspecified place in unspecified non-institutional (private) residence as the place of occurrence of the external cause
CPT/HCPCS: 36415; 70450; 71045; 71250; 71275; 74176; 80053; 82550; 82728; 82948; 83036; 83605; 83615; 83735; 83874; 83880; 84145; 84484; 85025; 85378; 85610; 85730; 86140; 87040; 87486; 87581; 87633; 87635; 87798; 92610; 93005; 93970; C9803; G0378; J0360; J0456; J0696; J3475; J3480; J3490; J7030; Q9967; U0003

== ENCOUNTER 2022-04-04 11:20 | Emergency (ER) | payer MEDICAID, OTHER ==
[~2022-04-04] VITALS: Ht 152.4 cm; Wt 72.6 kg
[~2022-04-04 11:20] MED LIST changes: +AMLO-257 PO; +NAPR-1141 PO
[2022-04-04 12:12] LABS: BASOPHILS % (AUTO) 0.7 % (0.0-5.0); EOSINOPHILS % (AUTO) 2.4 % (0.0-8.0); HEMATOCRIT 41.4 % (36-48); LYMPHOCYTES % (AUTO) 22.9 % (21.0-51.0); MEAN CORPUSCULAR HGB CONC 33.6 g/dL (32.0-36.0); MEAN CORPUSCULAR VOLUME 86.3 fL (79-99); MONOCYTES % (AUTO) 6.7 % (3.0-13.0); NEUTROPHILS % (AUTO) 67.1 % (40.0-77.0); PLATELET COUNT (AUTO) 268 K/uL (130-400)
[2022-04-04 12:15] LABS: APPEARANCE,URINE CLEAR (CLEAR); BILIRUBIN,URINE NEGATIVE (NEGATIVE); COLOR,URINE LIGHT-YELLOW (YELLOW); GLUCOSE, URINE (UA) NEGATIVE (NEGATIVE); KETONES,URINE NEGATIVE (NEGATIVE); LEUKOCYTE ESTERASE ,URINE 75 Leu/uL (NEGATIVE); NITRATE,URINE NEGATIVE (NEGATIVE); OCCULT BLOOD,URINE NEGATIVE (NEGATIVE); PROTEIN,URINE NEGATIVE (NEGATIVE); UROBILINOGEN,URINE 0.2 mg/dL (0.2-1.0)
[2022-04-04 12:20] LABS: BACTERIA,URINE FEW /HPF (None Seen); MUCUS,URINE RARE LPF (None Seen); OTHER CASTS, URINE 3 /LPF (None Seen); SQUAMOUS EPITHELIAL CELL,UR RARE /HPF (0-2)
[2022-04-04 12:22] LABS: CREATININE 1.1 mg/dL (0.5-1.5); POTASSIUM 3.8 mmol/L (3.5-5.1)
[2022-04-04] MEDS ORDERED: ONDANSETRON 4MG INJ IVP ONE (12:30)
[2022-04-04] MEDS ORDERED: MORPHINE 2 MG SYG IVP ONE (12:30)
[2022-04-04] MEDS ORDERED: 0.9%NACL 1000ML 500 ML IV ONE (12:30)
[2022-04-04 12:31] LABS: ALBUMIN 3.2 g/dL (3.5-5.0); TOTAL PROTEIN, SERUM 7.9 g/dL (6.0-8.3)
[2022-04-04] MEDS ORDERED: CEFTRIAXONE 1G VIAL IVP ONE (13:30)
[2022-04-04] MEDS ORDERED: IOHEXOL 350 MG/ML 100ML INFUS..BTL IV ONE (13:50)
[2022-04-04 13:56] VITALS: BP 136/58
[2022-04-04] MEDS ORDERED: SULF1TAB42 PO (14:59)
== END 2022-04-04 15:13 | disposition home or self-care (01) ==
LOC: EDH 11:20
DX: N39.0 Urinary tract infection, site not specified (principal); Z20.822 Contact with and (suspected) exposure to COVID-19; I10 Essential (primary) hypertension; Z88.0 Allergy status to penicillin; Z90.49 Acquired absence of other specified parts of digestive tract
CPT/HCPCS: 99285; 74177; 96374; 71045; 96375; 87635; 96361; 84484; 80053; 83690; 85025; 87088; 83605; 81001; 36415; 93005; C9803; J7030 ×2; J0696; J2405; Q9967

== ENCOUNTER 2023-07-24 23:34 | Emergency (ER) | payer MEDICAID, OTHER ==
[~2023-07-24] VITALS: Ht 152.4 cm; Wt 51.3 kg
[~2023-07-24 23:34] MED LIST changes: +SULF1TAB42 PO
[2023-07-25 01:10] LABS: BASOPHILS % (AUTO) 0.7 % (0.0-5.0); EOSINOPHILS # (AUTO) 0.23 K/uL (0.00-0.70); EOSINOPHILS % (AUTO) 1.6 % (0.0-8.0); IMMATURE GRANULOCYTE ABSOLUTE 0.05 K/uL (0-1); LYMPHOCYTES # (AUTO) 1.5 K/uL (1.0-4.8); MEAN CORPUSCULAR HEMOGLOBIN 30.1 pg (27.0-33.0); MEAN CORPUSCULAR HGB CONC 33.2 g/dL (32.0-36.0); MEAN CORPUSCULAR VOLUME 90.9 fL (79-99); MONOCYTES # (AUTO) 0.9 K/uL (0.1-1.0); MONOCYTES % (AUTO) 6.4 % (3.0-13.0); NEUTROPHILS # (AUTO) 11.7 K/uL (1.8-7.7); PLATELET COUNT (AUTO) 251 K/uL (130-400); RED BLOOD CELL COUNT(AUTO) 4.18 MIL/uL (4.00-5.50); RED CELL DISTRIBUTION WIDTH 13.3 % (11.0-15.5); WHITE BLOOD COUNT (AUTO) 14.5 K/uL (4.8-10.8)
[2023-07-25] MEDS: MORPHINE 2 MG SYG IVP ONE ×2 (01:12→02:46)
[2023-07-25] MEDS: METOCLOPRAMIDE 10 MG/2 ML VIAL IVP ONE (01:12)
[2023-07-25] MEDS: FAMOTIDINE 20MG VIAL IV ONE (01:12)
[2023-07-25 01:17] LABS: CREATININE 0.9 mg/dL (0.5-1.5); POTASSIUM 3.7 mmol/L (3.5-5.1)
[2023-07-25] MEDS ORDERED: IOHEXOL-350 75 ML VIAL IV ONE (02:02)
[2023-07-25] MEDS: HYDRALAZINE 20MG/ML VIAL IV ONE (02:46)
[2023-07-25 07:42] LABS: APPEARANCE,URINE CLEAR (CLEAR); BILIRUBIN,URINE NEGATIVE (NEGATIVE); COLOR,URINE LIGHT-YELLOW (YELLOW); GLUCOSE, URINE (UA) NEGATIVE (NEGATIVE); KETONES,URINE NEGATIVE (NEGATIVE); LEUKOCYTE ESTERASE ,URINE NEGATIVE Leu/uL (NEGATIVE); NITRATE,URINE NEGATIVE (NEGATIVE); OCCULT BLOOD,URINE NEGATIVE (NEGATIVE); PROTEIN,URINE NEGATIVE (NEGATIVE); UROBILINOGEN,URINE 0.2 mg/dL (0.2-1.0)
[2023-07-25 07:55] LABS: ADD UA MICROSCOPIC YES
[2023-07-25 09:06] LABS: SQUAMOUS EPITHELIAL CELL,UR RARE /HPF (0-2)
[2023-07-25] MEDS: ACETAMINOPHEN 325 MG TAB PO ONE (11:01)
[2023-07-25 16:22] VITALS: BP 148/60; PULSE 67; RESP 17; O2SAT 95
== END 2023-07-25 16:35 | disposition short-term general hospital (02) ==
LOC: EDH 23:34
DX: S02.40EA Zygomatic fracture, right side, initial encounter for closed fracture (principal); S02.40CA Maxillary fracture, right side, initial encounter for closed fracture; Z79.899 Other long term (current) drug therapy; Z88.0 Allergy status to penicillin; W18.39XA Other fall on same level, initial encounter; Y93.89 Activity, other specified; Y92.89 Other specified places as the place of occurrence of the external cause; Y99.8 Other external cause status
CPT/HCPCS: 99285; 96374; 96375; 82550; 80048; 85025; 81001; 36415; 96376; 70450; 73130; 72125; 71260; 70486; 74177; J3490; J2270 ×2; J0360; J2765; Q9967

== ENCOUNTER 2023-09-07 10:09 | Inpatient (IN) | payer OTHER ==
[2023-09-07] VITALS (37 sets, daily range): BP systolic 89–154; BP diastolic 46–103; PULSE 95–133; RESP 12–25; TEMP 94.1–98.9; O2SAT 99–100
[~2023-09-07] VITALS: Ht 144.8 cm; Wt 59.9 kg
[2023-09-07 10:33] LABS: BASOPHILS # (AUTO) 0.06 K/uL (0.00-0.20); BASOPHILS % (AUTO) 0.6 % (0.0-5.0); EOSINOPHILS # (AUTO) 0.29 K/uL (0.00-0.70); EOSINOPHILS % (AUTO) 2.7 % (0.0-8.0); HEMATOCRIT 39.8 % (36-48); LYMPHOCYTES # (AUTO) 3.3 K/uL (1.0-4.8); LYMPHOCYTES % (AUTO) 31.3 % (21.0-51.0); MEAN CORPUSCULAR HEMOGLOBIN 30.4 pg (27.0-33.0); MEAN CORPUSCULAR HGB CONC 31.4 g/dL (32.0-36.0); MEAN CORPUSCULAR VOLUME 96.8 fL (79-99); MONOCYTES # (AUTO) 0.5 K/uL (0.1-1.0); MONOCYTES % (AUTO) 4.8 % (3.0-13.0); NEUTROPHILS # (AUTO) 6.4 K/uL (1.8-7.7); NEUTROPHILS % (AUTO) 59.7 % (40.0-77.0); PLATELET COUNT (AUTO) 245 K/uL (130-400); RED BLOOD CELL COUNT(AUTO) 4.11 MIL/uL (4.00-5.50); RED CELL DISTRIBUTION WIDTH 13.2 % (11.0-15.5); WHITE BLOOD COUNT (AUTO) 10.7 K/uL (4.8-10.8)
[2023-09-07] MEDS: NOREPINEPHRIN 4MG/NS 250ML 250 ML IV ONE (10:40)
[2023-09-07] MEDS ORDERED: HEPARIN 10,000 UNIT/10ML (1,000 UNIT/ML) VIAL ONE (10:48)
[2023-09-07] MEDS ORDERED: VERAPAMIL HCL 2.5 MG/ML VIAL ONE (10:48)
[2023-09-07] MEDS ORDERED: IOHEXOL 350 MG/ML 100ML INFUS..BTL IV ONE (10:48)
[2023-09-07] MEDS ORDERED: LIDOCAINE HCL 400MG/20ML VIAL ONE (10:48)
[2023-09-07] MEDS ORDERED: NITROGLYCERIN 50MG VIAL ONE (10:49)
[2023-09-07] MEDS ORDERED: ASPIRIN 325MG TAB PO ONE (11:00)
[2023-09-07 11:21] LABS: ALBUMIN 2.3 g/dL (3.5-5.0); BILIRUBIN,TOTAL 0.6 mg/dL (0.2-1.0); CREATININE 1.5 mg/dL (0.5-1.0); POTASSIUM 4.2 mmol/L (3.5-5.1); TOTAL PROTEIN, SERUM 5.9 g/dL (6.0-8.3)
[2023-09-07] MEDS ORDERED: VANCOMYCIN PROTOCOL PER PHARMACY IV SCH (11:30)
[2023-09-07] MEDS ORDERED: NOREPINEPHRIN 4MG/NS 250ML 250 ML IV SCH (11:30)
[2023-09-07 11:53] LABS: INR 0.96 (0.85-1.15); PROTHROMBIN TIME 11.4 SEC (9.6-11.6)
[2023-09-07 11:55] LABS: PARTIAL THROMBOPLASTIN TIME 26.1 SEC (26.3-35.5)
[2023-09-07 12:07] LABS: INFLUENZA TYPE A Negative For Type A (NEGATIVE); INFLUENZA TYPE B Negative For Type B (NEGATIVE)
[2023-09-07 12:08] LABS: COVID19 (SARS ANTIGEN RAPID) PRESUMPTIVE NEGATIVE (NEGATIVE)
[2023-09-07] MEDS: DOPAMINE 800MG/D5 250ML 250 ML IV ONE (12:13)
[2023-09-07] MEDS: 0.9%NACL 1000ML 1,365 ML IV ONE (12:14)
[2023-09-07] MEDS: ENOXAPARIN SODIUM 80 MG/0.8 ML SQ ONE (12:23)
[2023-09-07] MEDS: LEVOFLOXACIN 750 MG/D5W 150ML BAG IV ONE (12:24)
[2023-09-07] MEDS ORDERED: NOREPINEPHRINE 16MG/NS 250ML PREMIX IV SCH (12:30)
[2023-09-07 12:34] LABS: ABG BASE EXCESS -21.3 mmol/L (-2.0-3.0); ABG HCO3 7.8 mmol/L (21.0-28.0); ABG OXYGEN SATURATION 99.1 % (95.0-99.0); ABG PCO2 28 mmHg (32-45); ABG PH 7.058 (7.35-7.450); PO2, ARTERIAL BG 225.6 mmHg (83.0-108.0); VENT MODE, BG NRM (ROOM AIR)
[2023-09-07 12:54] LABS: HEMOGLOBIN A1C 5.6 % (4.0-6.0)
[2023-09-07] MEDS: SODIUM BICARB 50MEQ 50ML VIAL IV ONE (12:58)
[2023-09-07] MEDS: VANCOMYCIN 750MG VIAL IVPB SCH (13:02)
[2023-09-07] MEDS: CEFEPIME HCL 1 GM VIAL IVPB SCH (13:02)
[2023-09-07 13:05] LABS: ABG BASE EXCESS -6.7 mmol/L (-2.0-3.0); ABG HCO3 19.9 mmol/L (21.0-28.0); ABG PCO2 44 mmHg (32-45); ABG PH 7.276 (7.35-7.450); CARBON MONOXIDE 0.3; DEVICE COMMENT JUDY RN AL; VENT MODE, BG NRB 15L (ROOM AIR)
[2023-09-07] MEDS: CLOPIDOGREL 300MG TAB PO ONE (13:50)
[2023-09-07] MEDS: ASPIRIN 300 MG SUPPOSITORY PR ONE (13:54)
[2023-09-07] MEDS: ASPIRIN 325MG EC TAB PO ONE (13:54)
[2023-09-07 14:42] LABS: CREATININE 1.8 mg/dL (0.5-1.0)
[2023-09-07 14:52] LABS: ALBUMIN 2.2 g/dL (3.5-5.0); BILIRUBIN,TOTAL 0.7 mg/dL (0.2-1.0); TOTAL PROTEIN, SERUM 5.8 g/dL (6.0-8.3)
[2023-09-07] MEDS: SODIUM BICARB 8.4% 50ML SYRING 150 MEQ in DEXTROSE 5%-WATER 1,000 ML IVP SCH (15:14)
[2023-09-07] MEDS: HEPARIN 5,000 UNIT VIAL IV PRN (15:26)
[2023-09-07] MEDS: HEPARIN 25,000 UNITS/250ML D5W 250 ML IV SCH (15:30)
[2023-09-07] MEDS: PANTOPRAZOLE 40 MG/VIAL IVP SCH (15:31)
[2023-09-07] MEDS: HYDROCORTISONE SOD SUCCINATE 100 MG/2 ML VIAL IV SCH (15:32)
[2023-09-07 15:52] LABS: APPEARANCE,URINE CLOUDY (CLEAR); BILIRUBIN,URINE NEGATIVE (NEGATIVE); COLOR,URINE LIGHT-YELLOW (YELLOW); GLUCOSE, URINE (UA) 30 mg/dL (NEGATIVE); KETONES,URINE NEGATIVE (NEGATIVE); LEUKOCYTE ESTERASE ,URINE 25 Leu/uL (NEGATIVE); NITRATE,URINE NEGATIVE (NEGATIVE); OCCULT BLOOD,URINE MODERATE (NEGATIVE); PROTEIN,URINE 100 mg/dL (NEGATIVE); UROBILINOGEN,URINE 0.2 mg/dL (0.2-1.0)
[2023-09-07 15:53] LABS: ADD UA MICROSCOPIC YES
[2023-09-07 15:54] LABS: BACTERIA,URINE RARE /HPF (None Seen)
[2023-09-07 16:08] LABS: CREATININE 1.9 mg/dL (0.5-1.0)
[2023-09-07] MEDS: INSULIN HUMULIN R 100 UNIT/ML 3ML SQ SCH (17:38)
[2023-09-07] MEDS: DEXMEDETOMIDINE 400MCG/NS100ML IV SCH (18:12)
[2023-09-07] MEDS: PHENYLEPHRINE HCL 100 MG in 0.9% NACL 250ML 240 ML IV PRN (18:14)
[2023-09-07 22:05] LABS: CREATININE 2.1 mg/dL (0.5-1.0); POTASSIUM 3.9 mmol/L (3.5-5.1)
[2023-09-07 22:13] LABS: INR 1.22 (0.85-1.15); PROTHROMBIN TIME 14.2 SEC (9.6-11.6)
[2023-09-07 22:34] LABS: PARTIAL THROMBOPLASTIN TIME > 139.0 SEC (26.3-35.5)
[2023-09-08] VITALS (92 sets, daily range): BP systolic 72–167; BP diastolic 39–103; PULSE 58–113; RESP 8–24; TEMP 96.9–98.3; O2SAT 95–100
[2023-09-08 03:23] LABS: ABG BASE EXCESS -1.9 mmol/L (-2.0-3.0); ABG HCO3 22.9 mmol/L (21.0-28.0); ABG OXYGEN SATURATION 95.6 % (95.0-99.0); ABG PCO2 39 mmHg (32-45); ABG PH 7.386 (7.35-7.450); CARBON MONOXIDE 0.3; DEVICE COMMENT LR; HHb 4.4; PO2, ARTERIAL BG 87.3 mmHg (83.0-108.0); VENT MODE, BG RN MENDOZA (ROOM AIR)
[2023-09-08 06:26] LABS: BASOPHILS # (AUTO) 0.03 K/uL (0.00-0.20); BASOPHILS % (AUTO) 0.2 % (0.0-5.0); HEMATOCRIT 37.8 % (36-48); IMMATURE GRANULOCYTE ABSOLUTE 0.11 K/uL (0-1); LYMPHOCYTES # (AUTO) 1.9 K/uL (1.0-4.8); LYMPHOCYTES % (AUTO) 10.3 % (21.0-51.0); MEAN CORPUSCULAR HEMOGLOBIN 30.7 pg (27.0-33.0); MEAN CORPUSCULAR HGB CONC 34.4 g/dL (32.0-36.0); MEAN CORPUSCULAR VOLUME 89.4 fL (79-99); MONOCYTES # (AUTO) 0.8 K/uL (0.1-1.0); MONOCYTES % (AUTO) 4.5 % (3.0-13.0); NEUTROPHILS # (AUTO) 15.6 K/uL (1.8-7.7); NEUTROPHILS % (AUTO) 84.4 % (40.0-77.0); PLATELET COUNT (AUTO) 172 K/uL (130-400); RED BLOOD CELL COUNT(AUTO) 4.23 MIL/uL (4.00-5.50); RED CELL DISTRIBUTION WIDTH 13.2 % (11.0-15.5); WHITE BLOOD COUNT (AUTO) 18.4 K/uL (4.8-10.8)
[2023-09-08 06:38] LABS: INR 1.46 (0.85-1.15); PROTHROMBIN TIME 15.2 SEC (9.6-11.6)
[2023-09-08 06:41] LABS: ALBUMIN 2.2 g/dL (3.5-5.0); BILIRUBIN,TOTAL 0.4 mg/dL (0.2-1.0); POTASSIUM 4.7 mmol/L (3.5-5.1)
[2023-09-08 07:04] LABS: PARTIAL THROMBOPLASTIN TIME > 139.0 SEC (26.3-35.5)
[2023-09-08] MEDS: ASPIRIN 81MG CHEW TAB PO SCH (09:00)
[2023-09-08] MEDS: CLOPIDOGREL 75MG TAB PO SCH (09:00)
[2023-09-08 13:03] LABS: BASOPHILS # (AUTO) 0.02 K/uL (0.00-0.20); BASOPHILS % (AUTO) 0.1 % (0.0-5.0); IMMATURE GRANULOCYTE ABSOLUTE 0.07 K/uL (0-1); LYMPHOCYTES # (AUTO) 1.8 K/uL (1.0-4.8); LYMPHOCYTES % (AUTO) 10.6 % (21.0-51.0); MEAN CORPUSCULAR HEMOGLOBIN 29.9 pg (27.0-33.0); MEAN CORPUSCULAR HGB CONC 34.3 g/dL (32.0-36.0); MEAN CORPUSCULAR VOLUME 87.1 fL (79-99); MONOCYTES # (AUTO) 0.8 K/uL (0.1-1.0); MONOCYTES % (AUTO) 4.5 % (3.0-13.0); NEUTROPHILS # (AUTO) 14.5 K/uL (1.8-7.7); NEUTROPHILS % (AUTO) 84.4 % (40.0-77.0); PLATELET COUNT (AUTO) 160 K/uL (130-400); RED BLOOD CELL COUNT(AUTO) 4.25 MIL/uL (4.00-5.50); RED CELL DISTRIBUTION WIDTH 13.4 % (11.0-15.5); WHITE BLOOD COUNT (AUTO) 17.2 K/uL (4.8-10.8)
[2023-09-08] MEDS: VASOPRESSIN 40 UNITS in 0.9%NACL 50ML 40 ML IV SCH (15:07)
[2023-09-08] MEDS: PANTOPRAZOLE 40 MG/VIAL IVP SCH (19:57)
[2023-09-08 20:11] LABS: BASOPHILS # (AUTO) 0.02 K/uL (0.00-0.20); BASOPHILS % (AUTO) 0.1 % (0.0-5.0); HEMATOCRIT 35.7 % (36-48); LYMPHOCYTES # (AUTO) 2.2 K/uL (1.0-4.8); LYMPHOCYTES % (AUTO) 10.8 % (21.0-51.0); MEAN CORPUSCULAR HEMOGLOBIN 30.2 pg (27.0-33.0); MEAN CORPUSCULAR HGB CONC 34.5 g/dL (32.0-36.0); MEAN CORPUSCULAR VOLUME 87.7 fL (79-99); MONOCYTES # (AUTO) 0.9 K/uL (0.1-1.0); MONOCYTES % (AUTO) 4.3 % (3.0-13.0); NEUTROPHILS # (AUTO) 16.9 K/uL (1.8-7.7); NEUTROPHILS % (AUTO) 84.3 % (40.0-77.0); PLATELET COUNT (AUTO) 146 K/uL (130-400); RED BLOOD CELL COUNT(AUTO) 4.07 MIL/uL (4.00-5.50); RED CELL DISTRIBUTION WIDTH 13.4 % (11.0-15.5)
[2023-09-09] VITALS (94 sets, daily range): BP systolic 98–286; BP diastolic 39–284; PULSE 47–69; RESP 10–35; TEMP 97.2; O2SAT 95–97
[2023-09-09 00:54] LABS: BASOPHILS # (AUTO) 0.03 K/uL (0.00-0.20); BASOPHILS % (AUTO) 0.2 % (0.0-5.0); EOSINOPHILS # (AUTO) 4.48 K/uL (0.00-0.70); EOSINOPHILS % (AUTO) 24.3 % (0.0-8.0); HEMATOCRIT 32.7 % (36-48); IMMATURE GRANULOCYTE ABSOLUTE 0.06 K/uL (0-1); LYMPHOCYTES # (AUTO) 1.4 K/uL (1.0-4.8); LYMPHOCYTES % (AUTO) 7.6 % (21.0-51.0); MEAN CORPUSCULAR HEMOGLOBIN 30.1 pg (27.0-33.0); MEAN CORPUSCULAR HGB CONC 34.6 g/dL (32.0-36.0); MEAN CORPUSCULAR VOLUME 87.2 fL (79-99); MONOCYTES # (AUTO) 0.7 K/uL (0.1-1.0); NEUTROPHILS # (AUTO) 11.8 K/uL (1.8-7.7); NEUTROPHILS % (AUTO) 63.6 % (40.0-77.0); PLATELET COUNT (AUTO) 142 K/uL (130-400); RED BLOOD CELL COUNT(AUTO) 3.75 MIL/uL (4.00-5.50); RED CELL DISTRIBUTION WIDTH 13.3 % (11.0-15.5); WHITE BLOOD COUNT (AUTO) 18.5 K/uL (4.8-10.8)
[2023-09-09 04:09] LABS: BASOPHILS # (AUTO) 0.03 K/uL (0.00-0.20); BASOPHILS % (AUTO) 0.2 % (0.0-5.0); HEMATOCRIT 34.7 % (36-48); IMMATURE GRANULOCYTE ABSOLUTE 0.13 K/uL (0-1); LYMPHOCYTES # (AUTO) 1.5 K/uL (1.0-4.8); LYMPHOCYTES % (AUTO) 7.4 % (21.0-51.0); MEAN CORPUSCULAR HEMOGLOBIN 30.2 pg (27.0-33.0); MEAN CORPUSCULAR HGB CONC 33.7 g/dL (32.0-36.0); MEAN CORPUSCULAR VOLUME 89.4 fL (79-99); MONOCYTES # (AUTO) 0.8 K/uL (0.1-1.0); MONOCYTES % (AUTO) 3.8 % (3.0-13.0); NEUTROPHILS # (AUTO) 17.5 K/uL (1.8-7.7); NEUTROPHILS % (AUTO) 87.9 % (40.0-77.0); PLATELET COUNT (AUTO) 145 K/uL (130-400); RED BLOOD CELL COUNT(AUTO) 3.88 MIL/uL (4.00-5.50); RED CELL DISTRIBUTION WIDTH 13.4 % (11.0-15.5); WHITE BLOOD COUNT (AUTO) 19.8 K/uL (4.8-10.8)
[2023-09-09 04:23] LABS: CREATININE 2.3 mg/dL (0.5-1.0); POTASSIUM 4.6 mmol/L (3.5-5.1)
[2023-09-10] VITALS (30 sets, daily range): BP systolic 91–140; BP diastolic 39–72; PULSE 46–60; RESP 11–24; O2SAT 76–99
[2023-09-10] MEDS ORDERED: VANCOMYCIN 750MG VIAL IVPB SCH (12:00)
[2023-09-10] MEDS: MORPHINE 2 MG SYG IVP PRN (13:19)
[2023-09-10] MEDS: LORAZEPAM 2 MG/ML 1 ML VIAL IVP PRN (23:07)
[2023-09-11 08:27] VITALS: O2SAT 93
[2023-09-11 08:35] VITALS: BP 152/63; PULSE 56; RESP 18
== END 2023-09-11 14:50 | disposition home or self-care (01) | DRG 871 ==
LOC: EDH 10:09 → EDHIP 10:10 → UNDOADMIN 11:30 → EDHIP 11:30 → 2CH 12:09 → EDHIP 12:09 → 3BH 09-10 16:25
PROVIDERS: ADMIT Internal Medicine; ATTEND Internal Medicine
PROC: 03HY32Z Insertion of Monitoring Device into Upper Artery, Percutaneous Approach (ICD-10-PCS; principal; 2023-09-07)
PROC: 02HV33Z Insertion of Infusion Device into Superior Vena Cava, Percutaneous Approach (ICD-10-PCS; 2023-09-07)
PROC: B548ZZA Ultrasonography of Superior Vena Cava, Guidance (ICD-10-PCS; 2023-09-07)
DX: A41.9 Sepsis, unspecified organism (principal); G92.8 Other toxic encephalopathy; R65.21 Severe sepsis with septic shock; R57.0 Cardiogenic shock; J96.01 Acute respiratory failure with hypoxia; I21.09 ST elevation (STEMI) myocardial infarction involving other coronary artery of anterior wall; E87.20 Acidosis, unspecified; N17.9 Acute kidney failure, unspecified; E87.1 Hypo-osmolality and hyponatremia; K92.1 Melena; I13.0 Hypertensive heart and chronic kidney disease with heart failure and stage 1 through stage 4 chronic kidney disease, or unspecified chronic kidney disease; I31.39 Other pericardial effusion (noninflammatory); R73.9 Hyperglycemia, unspecified; Z20.822 Contact with and (suspected) exposure to COVID-19; E78.5 Hyperlipidemia, unspecified; I35.1 Nonrheumatic aortic (valve) insufficiency; Z66 Do not resuscitate; I50.9 Heart failure, unspecified; N18.9 Chronic kidney disease, unspecified; Z51.5 Encounter for palliative care; Z87.891 Personal history of nicotine dependence; Z88.1 Allergy status to other antibiotic agents; Z79.899 Other long term (current) drug therapy
CPT/HCPCS: 36415; 36556; 36600; 36620; 71045; 80048; 80053; 80202; 81001; 82010; 82270; 82435; 82550; 82803; 82947; 82948; 83036; 83605; 83880; 84132; 84145; 84295; 84484; 85014; 85018; 85025; 85610; 85730; 86140; 87040; 87088; 87420; 87426; 87804; 87880; 93005; 93306; 96375; C9113; G0378; J0692; J1265; J1644; J1650; J1720; J1815; J1956; J2060; J2270; J2371; J3490; J7050; J7070; Q9967; A4600; J3370